=== PATIENT | female | born 1940 | race Caucasian/White ===

== ENCOUNTER → 2017-05-01 11:26 | Outpatient (CLI) | payer MEDICARE, SELFPAY ==
[2017-05-01 16:13] LABS: AST(SGOT) 23 U/L (15-37); Alanine Aminotransfer ALT/SGPT 34 U/L (13-56); Anion Gap 10 (5-15); BUN 13 mg/dL (7-18); BUN/Creat Ratio 17.6 RATIO (10-20); Calcium,Total 9.2 mg/dL (8.5-10.1); Chloride 107 mmol/L (98-107); Cholesterol 185 mg/dL (200); Creatinine, Serum 0.74 mg/dL (0.55-1.02); EST Glomerular Filtration Rate 81 mL/min (>60); Est Glom Filt Rate - Afr Amer 98 mL/min (>60); Glucose 93 mg/dL (74-106); High Density Lipoprotein 87 mg/dL; Potassium 4.2 mmol/L (3.5-5.1); Sodium Level 140 mmol/L (136-145); Thyroid Stim Hormone (TSH) 2.67 uIU/mL (0.358-3.74); Triglycerides 114 mg/dL; Very Low Density Lipoprotein 23 mg/dL (5-40)
== END ==
PROVIDERS: Family Provider Family Medicine; PCP Family Medicine; Visit Provider Family Medicine
DX: E78.5 Hyperlipidemia, unspecified (principal); Z01.419 Encounter for gynecological examination (general) (routine) without abnormal findings
CPT/HCPCS: 36415; 80048; 80061; 84443; 84450; 84460

== ENCOUNTER → 2018-03-02 10:37 | Outpatient (CLI) | payer MEDICARE, SELFPAY ==
[2018-03-02 09:11] VITALS: BMI 26.2
[2018-03-02 12:29] LABS: Absolute Lymphocyte Count 2.04 X10^3/ul (0.83-4.51); Absolute Neutrophil Count 3.2 X10^3/uL (2.0-7.7); Basophil# 0.02 X10^3/uL; Basophil% 0.3 % (0-1); Eosinophil# 0.16 X10^3/uL; Eosinophils% 2.7 % (0-5); Hematocrit 45.6 % (37-47); Hemoglobin 15.1 g/dl (12.0-15.0); Lymphocyte # 2.04 X10^3/ul (4.0); Lymphocyte % 35.1 % (19-41); Mean Corp Hgb Conc 33.1 g/gl (32-36); Mean Corpuscular Volume 87.7 fL (81-99); Mean Platelet Vol. 10.1 fl (6.2-12.0); Monocyte% 6.9 % (0-10); Platelet Count 242 K/mm3 (150-450); RBC Distribution Width CV 13.8 % (11.6-14.6); RBC Distribution Width SD 44.4 fl (35.1-43.9); White Blood Count 5.8 K/mm3 (4.4-11.0)
[2018-03-02 12:36] LABS: POSITIVE COUNT NO; POSITIVE DIFFERENTIAL NO; POSITIVE MORPHOLOGY NO
[2018-03-02 13:05] LABS: AST(SGOT) 21 U/L (15-37); Alanine Aminotransfer ALT/SGPT 36 U/L (13-56); Albumin, Serum 4.3 g/dL (3.2-5.0); Alkaline Phosphatase 86 U/L (45-117); Bilirubin, Direct 0.17 mg/dL (0.00-0.30); Cholesterol 171 mg/dL (200); Globulin 3.4 g/dL (2.2-4.2); High Density Lipoprotein 87 mg/dL; Protein, Total 7.7 g/dL (6.4-8.2); Triglycerides 100 mg/dL; Very Low Density Lipoprotein 20 mg/dL (5-40)
[2018-03-02 13:11] LABS: ALB/GLOB Ratio 1.2 RATIO (0.9-2.4); AST(SGOT) 23 U/L (15-37); Alanine Aminotransfer ALT/SGPT 36 U/L (13-56); Albumin, Serum 4.2 g/dL (3.2-5.0); Alkaline Phosphatase 86 U/L (45-117); Anion Gap 11 (5-15); BUN 12 mg/dL (7-18); BUN/Creat Ratio 14.3 RATIO (10-20); Calcium,Total 9.6 mg/dL (8.5-10.1); Chloride 103 mmol/L (98-107); Creatinine, Serum 0.84 mg/dL (0.55-1.02); EST Glomerular Filtration Rate 70 mL/min (>60); Est Glom Filt Rate - Afr Amer 84 mL/min (>60); Globulin 3.5 g/dL (2.2-4.2); Glucose 93 mg/dL (74-106); Potassium 4.1 mmol/L (3.5-5.1); Protein, Total 7.7 g/dL (6.4-8.2); Sodium Level 140 mmol/L (136-145); Thyroid Stim Hormone (TSH) 2.76 uIU/mL (0.358-3.74)
--- OUTSIDE RECORDS SUMMARY | 2018-04-18 11:11 | XMS RPT_ITS ---
:1940 Author Organization OHIP Care Team Providers Name Role Phone Lauro Joshi Attending Unavailable Jolliff, Emelia Referring Unavailable Lauro Joshi Attending Unavailable Lauro Joshi Referring Unavailable Jolliff, Emelia Primary Care Unavailable Lauro Joshi Attending Unavailable Lauro Joshi Referring Unavailable Jolliff, Emelia Primary Care Unavailable Lauro Joshi Attending Unavailable Lauro Joshi Referring Unavailable Jolliff, Emelia Primary Care Unavailable Lauro Joshi Attending Unavailable Jolliff, Emelia Referring Unavailable Lauro Joshi Attending Unavailable Lauro Joshi Referring Unavailable Jolliff, Emelia Primary Care Unavailable JolliffEmelia Attending Unavailable Jolliff, Emelia Primary Care Unavailable Lauro Joshi Attending Unavailable Lauro Joshi Referring Unavailable Lauro Joshi Attending Unavailable Lauro Joshi Referring Unavailable PROBLEMS PROBLEMS DATE TYPE CONDITION / CODE ATTENDING STATUS SOURCE 03/31/2018 Unknown E78.5 - Lauro Joshi Active [place] Hyperlipidemia, Community unspecified / Hospital E78.5(ICD-10) Repository 04/02/2018 Unknown R07.9 - Chest pain, Lauro Joshi Active [place] unspecified / Community R07.9(ICD-10) Hospital Repository 03/02/2018 Unknown R42 - Dizziness and Lauro Joshi Active [place] giddiness / Community R42(ICD-10) Hospital Repository 03/02/2018 Unknown R55 - Syncope and Lauro Joshi Active [place] collapse / Community R55(ICD-10) Hospital Repository 05/01/2017 Unknown 272.4 - Other and Emelia Trevino unspecified Community hyperlipidemia / Hospital 272.4(ICD-9) Repository 05/01/2017 Unknown Z01.419 - Encounter Emelia Trevino for gynecological [facility] examination Hospital (general) (routine) Repository without abnormal findings / Z01.419(ICD-10) 05/01/2017 Unknown V72.31 - Routine Emelia Trevino gynecological Community examination / Hospital V72.31(ICD-9) Repository PROCEDURES PROCEDURES No Procedure Records FoundRESULTS RESULTS OFFICE VISIT REPORT Observed: 03/30/2018 Status: F Source: [place] 1:54 PM REPOSITORY [facility] Services [facility] [place] [address] OFFICE VISIT Date of Service: 03/12/18 MR#: [id number] Acct: [id number] Patient: NEETA GARCIA Rep #: [id number] : 1940 Provider: Lauro Joshi MD Age/Sex: 77/F [place] [facility] [place]: Signed Intake Vital Signs03/12/18 Body Mass Index (BMI) 26.2 Intake Visit Reasons: NATHALIE - CATH TEACHING Chief Complaint: Pre syncope, chest pain, LBBB Allergies No Known Allergies Allergy (Unverified 03/01/18 17:17) Medications aspirin 81 mg tablet,delayed release 81 mg PO DAILY 03/01/18 [History Confirmed 03/30/18] simvastatin 20 mg tablet 20 mg PO QHS 03/01/18 [History Confirmed 03/30/18] clopidogrel 75 mg tablet 75 mg PO DAILY #30 tab 03/12/18 [Rx Confirmed 03/30/18] Assessment AND Plan Medications New: Nursing Note Patient had abnormal stress test today. Is here for cath teaching. Already had ekg, labs, CXR and OV is current. She is already on ASA 81 mg a day. She is to start Plavix 75 mg a day, RX will be sent to her pharmacy of choice. Heart cath is scheduled for March 31 @ 9:30 am, arrival time for pt. is 8am. 03/30/18 1354 <Electronically signed by Lauro Joshi MD> Date Lauro Joshi MD Cosigner Signature: Date (if applicable) CC: Nathalie Calderon STRESS TEST ECHO W/ Observed: 03/12/2018 Status: F Source: [place] CONTRAST 2:15 PM REPOSITORY [facility] Cardiovascular Services [address] [place] [address] Stress Test Echo W/Contrast MR#: [id number] Acct: [id number] Name: NEETA GARCIA Rep #: [id number] : 1940 77 From: Lauro Joshi MD Primary Care: Emelia Trevino MD Status: REG I Ordering Dr: Lauro Joshi MD Sex: F C Reason For Study: CHEST PAIN Stress Results Protocol: Aj Protocol Maximum Predicted HR: 142 bpm Target HR: 121 bpm % Maximum Predicted HR: 92 % DurationHeart Rate Stage (mm:ss) (bpm) BP Comment BASELINE 77 140/702CC DEFINITY STAGE 1 3:00 112 146/72 STAGE 2 1:30 131 / 2CC DEFINITY, INCREASED SOB RECOVERY 108 138/78 Stress Duration: 4:30 mm:ss Maximum Stress HR: 131 bpm Baseline Echocardiogram Findings The estimated ejection fraction is 65 %. Stress Echo Wall motion Data Resting WM Intermediate WM Stress WM Resting Wall Motion Wall Motion Stress No regional wall motion Posterior-Basal: Mildly abnormalities noted. hypokinetic. Infero-Basal: Mildly hypokinetic. Mid-Inferior: Mildly hypokinetic. EKG Data NSR with LBBB. The patient exercised according to the regular Aj protocol for a total duration of 4:30. The maximum heart rate attained was 137 beats per minute. This was 96% of maximum predicted heart rate. The patient exercised into stage 2 of the Aj protocol. During stress, there were no ST or T wave changes noted to suggest ischemia. No clinical angina was noted. Interpretation Summary The study was technically difficult. Contrast injection was performed. The estimated ejection fraction is 65 %. Posterior-Basal: Mildly hypokinetic Infero-Basal: Mildly hypokinetic Mid-Inferior: Mildly hypokinetic Abnormal, adequate, treadmill echocardiogram. Positive for ischemia by echocardiographic criteria. No anginal symptoms noted. Rare PVCs noted. Below average exercise capacity for age. Patient appeared to have mild inferior posterior hypokinesis seen in 2 views, parasternal long and apical 2 view. Test terminated due to dyspnea. Final LVEF is 55%. No complications. Pt referred to Dr Joshi's office for cath. Ordering Physician: Adi Referring Physician: Lauro Joshi Performed By: Leeroy Carlos RCS 03/12/18 1415 Date Lauro Joshi MD CC: Emelia Trevino MD; Lauro Joshi MD Date Dictated: 03/12/18 1039 Date Transcribed: 03/12/18 1418 Bridge Rigger: Signed CHEST PA AND LATERAL Observed: 03/12/2018 Status: F Source: [place] 11:36 AM [facility] REPOSITORY [facility] Imaging Services [address] [place] [address] Chest PA and Lateral MR#: [id number] Acct: [id number] Name: NEETA GARCIA Rep #: [id number] : 1940 F 77 From: Alex Dawson MD PCP: Emelia Trevino MD Status: REG CLI Study: Chest PA and Lateral Date of Exam: 03/12/18 Exam# [id number] Ordering Dr: Lauro Joshi MD STUDY: X-RAY CHEST REASON FOR EXAM: Female, 77 years old. Chest pain. TECHNIQUE: PA and lateral views of the chest. COMPARISON: None. FINDINGS: Hyperinflation. Scattered calcified granulomas. There is no demonstrated pleural abnormality. Normal size heart. Normal mediastinum and lula. Normal visualized pulmonary arteries. There is atherosclerotic calcification of the aortic arch with tortuosity. There is demineralization of the osseous structures. Mild levoscoliosis. Normal visualized ribs, clavicles, and shoulders. There is no demonstrated abnormality of the visualized soft tissue structures of the upper abdomen. RAD/Chest PA and Lateral IMPRESSION: Hyperinflation. Electronically Signed: Alex Dawson MD at 12:31 EST Tel [phone], Service support , CC: Emelia Trevino MD; Lauro Joshi MD Bridge Rigger: Signed ECHO, COMPLETE W/ Observed: 03/11/2018 Status: F Source: [place] CONTRAST 9:41 AM [facility] REPOSITORY [facility] Cardiovascular Services [address] [place] [address] Echo Complete W/ Contrast 03/11/18 0750 MR#: [id number] Acct: [id number] Name: NEETA GARCIA Rep #: [id number] : 1940 77 From: Lauro Joshi MD Attending Dr: Lauro Joshi MD Status: REG CLI Ordering Dr: Lauro Joshi MD Date: 03/11/18 Location: [facility] Sex: F C Admitted: Procedure This was a 2D Doppler, Color Flow transthoracic echocardiogram. The study was technically difficult. Contrast injection was performed. Exam performed in department. Left Ventricle Mild eccentric left ventricular hypertrophy. The estimated ejection fraction is 60 %. Stage 1 diastolic dysfunction. No regional wall motion abnormalities noted. Right Ventricle Normal size and thickness. Normal systolic function. Atria Normal left atrium. Normal right atrium. Normal atrial septum. Bubble contrast study negative for right to left interatrial shunt. Mitral Valve The mitral valve is structurally normal. No prolapse or stenosis seen. Trivial mitral valve insufficiency. Tricuspid Valve Normal tricuspid valve. Trivial tricuspid valve insufficiency. Right ventricular systolic pressure estimated to be 25 mmHg. Aortic Valve Trisinus/trileaflet aortic valve. Mild diffuse aortic valve thickening. Pulmonic Valve Normal pulmonic valve. Great Vessels Normal aortic root. Normal arch. Normal inferior vena cava. Inferior vena cava collapse with sniff. Pericardium/Pleural No pericardial effusion. Medication 22 gauge I.V. with prn adaptor inserted into right arm. Diluted definity 1.5ml given slow IV push to enhance endocardial definition. MMode/2D Measurements AND Calculations LVIDd: 4.9 cm IVSd: 1.2 cm Ao root diam: 3.1 cm LVIDs: 3.1 cm LVPWd: 1.1 cm RVDd: 3.2 cm FS: 36.6 % LAV(MOD-bp): 44.5 ml LA A4 area: 16.8 cm2 LA dimension(2D): 3.3 cm LAV(MOD-bp) Indexed: 23.7 ml/m2 LAV(MOD-sp2): 39.4 ml LAV(MOD-sp4): 49.9 ml RA A4 area: 15.3 cm2 Time Measurements MV dec time: 0.16 sec Doppler Measurements AND Calculations MV E max al: 78.0 cm/sec Lat Peak E' Al: 6.6 cm/sec Med Peak E' Al: 4.7 cm/sec MV A max al: 114.7 cm/sec E/E' lat: 11.8 E/E' med: 16.5 MV E/A: 0.68 Ao V2 max: 124.5 cm/sec LV V1 max: 80.0 cm/sec PA V2 max: 108.9 cm/sec Ao max P.2 mmHg LV V1 max P.6 mmHg TR max al: 221.2 cm/sec TR max P.6 mmHg Interpretation Summary The estimated ejection fraction is 60 %. Stage 1 diastolic dysfunction. Trivial mitral valve insufficiency. Trivial tricuspid valve insufficiency. Right ventricular systolic pressure estimated to be 25 mmHg. Bubble contrast study negative for right to left interatrial shunt. Compared to echo report dated 08/30/2008, no appreciable changes noted. The study was technically difficult. Contrast injection was performed. Ordering Physician: Lauro Joshi Referring Physician: Lauro Joshi 03/11/18940 Date Lauro Joshi MD CC: Emelia Trevino MD; Lauro Joshi MD Date Dictated: 03/11/18749 Date Transcribed: 03/11/18940 Bridge Rigger: Signed LIVER PROFILE Collected: 03/02/2018 Status: F Source: [place] 10:50 AM REPOSITORY TYPE CODE TESTS RESULT OUT OF RANGE REFERENCE UNITS LAB L501.1500 6.4-8.2 g/dL Normal T PROT 7.7 LAB L501.1800 3.2-5.0 g/dL Normal ALB 4.3 LAB L501.1950 2.2-4.2 g/dL Normal GLOB 3.4 LAB L501.4100 15-37 U/L Normal AST 21 LAB L501.4305 45-117 U/L Normal ALK P 86 LAB L501.4405 13-56 U/L Normal ALT 36 LAB L501.4600 0.20-1.00 mg/dL Normal T BILI 0.60 LAB L501.4700 0.00-0.30 mg/dL Normal D BILI 0.17 Performed By: #### L500.3400, L500.4100 #### [facility] [address] [place], [address] LIPID PROFILE Collected: 03/02/2018 Status: F Source: [place] 10:50 AM REPOSITORY TYPE CODE TESTS RESULT OUT OF RANGE REFERENCE UNITS LAB L501.4900 200 mg/dL Normal CHOL 171 Result Comment: <200 mg/dL Desirable 200-240 mg/dL Borderline >240 mg/dL High Risk LAB L501.5000 mg/dL Normal TRIG 100 Result Comment: The drugs N-Acetylcysteine and Metamizole may falsely depress this assay. Serum Triglycerides Reference Interval Normal <150 mg/dL Borderline high 150 - 199 mg/dL High 200 - 499 mg/dL Very High > or = 500 mg/dL LAB L501.6400 mg/dL Normal HDL 87 Result Comment: The drugs N-Acetylcysteine and Metamizole may falsely depress this assay. Reference Range HDL <40 mg/dL Low HDL Cholesterol HDL >or= 60 mg/dL High HDL Cholesterol LAB L501.6500 0-130 mg/dL Normal LDL 64 LAB L501.6600 5-40 mg/dL Normal VLDL 20 Performed By: #### L500.3400, L500.4100 #### [facility] [address] [place], [address] CBC W/DIFF, AUTOMATED Collected: 03/02/2018 Status: F Source: [place] 10:49 AM REPOSITORY TYPE CODE TESTS RESULT OUT OF RANGE REFERENCE UNITS LAB L100.1000 4.4-11.0 K/mm3 Normal WBC 5.8 LAB L100.1200 4.2-5.4 M/mm3 Normal RBC 5.20 LAB L100.1300 12.0-15.0 g/dl High HGB 15.1 LAB L100.1400 37-47 % Normal HCT 45.6 LAB L100.1500 81-99 fL Normal MCV 87.7 LAB L100.1600 27.0-32.0 pg Normal MCH 29.0 LAB L100.1700 32-36 g/gl Normal MCHC 33.1 LAB L100.1810 11.6-14.6 % Normal RDW CV 13.8 LAB L100.1820 35.1-43.9 fl High RDW SD 44.4 LAB L100.1900 150-450 K/mm3 Normal PLT 242 LAB L100.2000 6.2-12.0 fl Normal MPV 10.1 LAB L100.2100 47-70 % Normal NEUT% 55.0 LAB L100.2200 19-41 % Normal LY% 35.1 LAB L100.2300 0-10 % Normal MONO% 6.9 LAB L100.2400 0-5 % Normal EO% 2.7 LAB L100.2500 0-1 % Normal BASO% 0.3 LAB L100.2550 0.0-0.9 % Normal IM GRAN % 0.000 Result Comment: IG% - Immature Granulocytes (promyelocytes, myelocytes and metamyelocytes) > 1% indicates that a LEFT SHIFT is Present. LAB L100.2620 2.0-7.7 X10 3/uL Normal Absolute Neut 3.2 LAB L100.2720 0.83-4.51 X10 3/ul Normal Absolute Lymph 2.04 Performed By: #### L100.0100, L500.4050, L501.9520 #### [facility] [address] [place], [address] COMPREHENSIVE METABOLIC Collected: 03/02/2018 Status: F Source: [facility] 10:49 AM REPOSITORY TYPE CODE TESTS RESULT OUT OF RANGE REFERENCE UNITS LAB L501.0100 74-106 mg/dL Normal GLU 93 Result Comment: Please note revised GLUCOSE reference range effective 2017. LAB L501.1000 7-18 mg/dL Normal BUN 12 LAB L501.1100 0.55-1.02 mg/dL Normal CREAT,SERUM 0.84 Result Comment: The validity of the calculated GFR AND GFRAA in patients over 70 years has not been determined. Clinical correlation is essential. LAB L501.1110 >60 mL/min Normal EST GFR 70 Result Comment: Non- GFR Calc LAB L501.1115 >60 mL/min Normal EST GFR - AA 84 Result Comment: GFR Calc LAB L501.1300 10-20 RATIO Normal BUN/CRE 14.3 LAB L501.1500 6.4-8.2 g/dL T Normal PROT 7.7 LAB L501.1800 3.2-5.0 g/dL Normal ALB 4.2 LAB L501.1950 2.2-4.2 g/dL Normal GLOB 3.5 LAB L501.2000 0.9-2.4 RATIO Normal A/G 1.2 LAB L501.2200 8.5-10.1 mg/dL CA Normal 9.6 LAB L501.4100 15-37 U/L Normal AST 23 LAB L501.4305 45-117 U/L Normal ALK P 86 LAB L501.4405 13-56 U/L Normal ALT 36 LAB L501.4600 0.20-1.00 mg/dL T Normal BILI 0.60 LAB L501.5300 136-145 mmol/L NA Normal 140 LAB L501.5600 3.5-5.1 mmol/L K Normal 4.1 LAB L501.5900 98-107 mmol/L CL Normal 103 LAB L501.6100 21.0-32.0 mmol/L Normal CO2 26.0 LAB L501.6200 5-15 Normal GAP 11 Performed By: #### L100.0100, L500.4050, L501.9520 #### [facility] [address] [place], [address] THYROID STIM HORMONE Collected: 03/02/2018 Status: F Source: [place] ([facility]) 10:49 AM REPOSITORY TYPE CODE TESTS RESULT OUT OF RANGE REFERENCE UNITS LAB L501.9520 0.358-3.74 uIU/mL Normal TSH 2.76 Performed By: #### L100.0100, L500.4050, L501.9520 #### [facility] [address] [place], [place], [address] CARDIOLOGY VISIT Observed: 03/02/2018 Status: F Source: [place] REPORT 9:43 AM REPOSITORY [facility] [address] [place] [address] OFFICE VISIT Date of Service: 03/02/18 MR#: [id number] Acct: [id number] Name: NEETA GARCIA Rep #: [id number] : 1940 Provider: Lauro Joshi MD Age/Sex: 77/F [place] [facility] [place] Status: Signed HPI [facility] Chief Complaint: Pre syncope, chest pain, LBBB Details: NEETA GARCIA, is a 77 F who presents to the office today for evaluation of vertigo type dizziness, as well as left-sided chest pain. Patient is a nondiabetic, lifelong non-smoker, nonhypertensive, with hypercholesterolemia and no known coronary artery disease. The patient had a stress test many years ago, but has never had a catheterization or been told she had a heart attack. She has never been told she had an abnormal EKG. She denies having previous CVA. She has no positive family history for premature coronary artery disease although she does have family members who have of sudden cardiac in their mid 60s. Patient reports that she has had occasional episodes of left- sided chest pain which she describes as a constant dullness lasting about 10 minutes occasionally radiating down into her left arm with no associated shortness of breath dyspnea or trouble breathing. It appears to occur at rest, but has occasionally occurred with ambulation. He goes away on its own. This is been going on for approximately 3 weeks time and sought medical attention with her PCP and was referred to our office. In addition to this, and separately, the patient has had episodes of what appear to be vertigo, where she loses her balance and has to walk towards her left to regain it. Each of the times this happens, she has to ambulate towards her left to regain her footing. She has had no loss of consciousness, no dizziness, no lightheadedness, no presyncope. She has had no syncopal events as well. In our office today her blood pressure is 124/80, pulse 76 and regular. Physical exam demonstrates clear lungs bilaterally, regular rate and rhythm, normal S1/S2, no S3 or S4. No murmurs are detected. She has no edema. Her lipids as of 05/01/17 show an HDL of 87 and an LDL of 75. EKG dated 03/02/18 shows normal sinus rhythm, first- degree AV block, left atrial enlargement, and left bundle branch block. No old EKGs noted. Intake Vital Signs03/02/18 Height 5 ft 7 in 03/02/18 Weight: 167 lb 03/02/18 Body Mass Index (BMI) 26.2 03/02/18 Blood Pressure 124/80 H Intake Visit Reasons: NEAR SYNCOPE (JOLLIFF) Allergies No Known Allergies Allergy (Unverified 03/01/18 17:17) Medications aspirin 81 mg tablet,delayed release 81 mg PO DAILY 03/01/18 [History Confirmed 03/01/18] simvastatin 20 mg tablet 20 mg PO QHS 03/01/18 [History Confirmed 03/01/18] [facility] Medical History Hyperlipidemia (Chronic) Chest pain (Acute) Near syncope (Acute) Dizziness (Acute) Family History Sister Kidney disease Father , Age 70, leukemia Leukemia Mother , Age 86, dementia Diabetes Hypertension Brother , age 64 sudden cardiac CAD (coronary artery disease) Sudden cardiac Brother Parkinson's disease Brother Parkinson's disease Sister Blood clotting factor deficiency disorder Protein S Uncle , Sudden cardiac Sudden cardiac Social History Smoking Status: Never smoker ROS Const Const: Positive for other (Near syncopal episodes for past 6 months, several episodes. Witnessed.); negative for fatigue, weakness, body ache, fever(s), headache(s), chills, frequent falls, night sweats, daytime sleepiness, difficulty sleeping, excessive sweating, weight gain, weight loss, increased appetite, poor appetite or anorexia Eyes Eyes: Negative for blind spots, loss of peripheral vision, transient loss of vision, blurry vision, change in vision, double vision, floaters, tunnel vision or other ENT ENT: Negative for headache(s), dizziness, hearing loss, tinnitus, Nosebleed/epistaxis, balance problems, post nasal drip, lip swelling, tongue swelling, bleeding gums, hoarseness, neck pain, dry mouth or other Cardio Chest Pain: Yes (Left chest radiating down left arm, 2 episodes: 1 at night in bed.) Character: other (aching) Location: left chest Duration: minutes (about 10 minutes) Palpitations: No Edema: None Muscle aches with walking: None Resp Respiratory: Negative for SOB with activity, SOB at rest, SOB orthopnea\SOB lying down, Cough, Coughing up blood/hemoptysis, chest congestion, pain on inspiration, snoring, stridor, wheezing, crackles, paroxysmal nocturnal dyspnea or other GI GI: Negative nausea, vomiting, heartburn, constipation, belching, bloating, cramping, vomiting blood/hematemesis, bright, red blood in stools, black,tarry stools, loose stools, Difficulty Swallowing or other : Negative for hematuria, frequent nighttime urination/ nocturia, erectile dysfunction or abnormal vaginal bleeding Musc Musc: Negative for balance problems, muscle aches/ myalgia, muscle weakness or joint pain Skin Skin: Negative redness, non-healing lesions, rash, unusual bruising, skin ulcer, wounds, jaundice or other Neuro Neuro: Negative for weakness, headache(s), frequent falls, blurry vision, double vision, dizziness, lightheadedness, near syncope, syncope, orthostatic symptoms, confusion, memory loss, restless legs, vertigo, seizures, lack of coordination or other Dragan Hematologic/Lymphatic: Negative for easy bleeding, easy bruising, enlarged lymph nodes or other Endo Endo: Negative for fatigue, excessive sweating, cold intolerance, heat intolerance, flushing, increased thirst/drinking, increased hunger, hair loss, hair growth or other Psych Psych: Negative for anxiety, depression, thoughts of harming anyone, thoughts of harming yourself, visual hallucinations, panic attacks or audible hallucinations Allergy Allergy/Immunology: Negative for lip swelling, Negative for tongue swelling, Negative for rash, Negative for throat swelling, Negative for hives Cardiology Exam Const Appearance: cooperative, healthy appearing and no acute distress Nutritional Appearance: well nourished Orientation: alert, oriented x3 and oriented to person Head Head: normal to inspection, atraumatic and normocephalic Nose: external nose normal Face and Sinus: face symmetric Mouth: oral mucosae normal Eyes General: appearance normal, both eyes and all related structures Eyelids: eyelids normal Conjunctivae: conjunctivae normal Pupils: PERRL and normal by confrontation EOM: EOM intact bilaterally Neck Neck: normal visual inspection and full ROM Carotids: normal carotid upstroke Chest Chest inspection: normal inspection of the chest Auscultation: Bilateral: Clear to Auscultation Cardio Palpation: normal PMI Rate: regular rate Rhythm: regular rhythm Heart sounds: S1 normal and S2 normal GI GI: normal to inspection, no hepatosplenomegaly and bowel sounds present Neuro General: alert, oriented x3, awake, CN's II-XI intact bilaterally and moves all extremities Skin Skin: no rashes or lesions noted Extremities Pulses: Normal: Right Femoral Pulse, Left Femoral Pulse, Right Dorsalis Pedis Pulse, Left Dorsalis Pedis Pulse, Right Posterior Tibial Pulse, Left Posterior Tibial Pulse, Right Radial Pulse, Left Radial Pulse Lower Extremity Edema: None: Bilateral Psych Psychological: normal affect Assessment AND Plan 1. Chest pain R07.9 Plan 1. Chest pain: I am concerned given the patient's age and family history of coronary disease that she may have coronary artery disease. In addition she has an abnormal EKG with a left bundle branch block for an unknown duration of time. I recommended the patient undergo a 2D echo with Doppler to determine if she has had previous undiagnosed myocardial infarction, as well as to assess her pulmonary pressures. If there are no sniffing abnormalities, I recommend the patient undergo a modified Aj protocol treadmill echocardiogram to determine if she has any ischemic territories. Patient had difficulty keeping up with a treadmill in the past mostly from a coordination standpoint, so we will attempt a modified Aj protocol however this is unsafe, we will discontinue this and switch her to a dobutamine echocardiogram. Will hold off on beta-dany therapy as her blood pressure is normotensive. Orders Orders: 2. Hyperlipidemia E78.5 Plan 2. Hyperlipidemia: Her LDL and HDL cholesterol are fairly well-controlled for primary prophylaxis. Repeat lipids are pending. Continue Zocor. Orders Orders: 3. Dizziness R42 Plan 3. Dizziness: The patient's symptoms appear to be more vertigo than presyncope. She has had no syncopal or presyncopal episodes, and it appears that she has ambulate towards the left in order to regain her footing. This appears to be vertigo in nature, but nonetheless she has a left bundle branch block so I am concerned about possible arrhythmias contributing to her cerebral findings. Have recommended that she be referred to a neurologist after her cardiac workup is been complete. Continue baby aspirin. 4. Return office in 6-month.S This note was generated using a voice recognition system and there may be incorrect words, spelling or punctuation that were not noted when reviewing the office note prior to saving. Orders Orders: Plan Detail Other Orders Orders: Follow Up +6M (Adi) Coding Level of Care Code Off vis,new,level 4 Diagnoses Chest pain R07.9 Hyperlipidemia E78.5 Dizziness R42 Coding Level of Care Code Off vis,new,level 4 Diagnoses Chest pain R07.9 Hyperlipidemia E78.5 Dizziness R42 03/02/18 0943 <Electronically signed by Lauro Joshi MD> Date Lauro Joshi MD Cosigner Signature: Date (if applicable) CC: Emelia Trevino MD 12 LEAD EKG PERFORMED Observed: 03/02/2018 Status: F Source: [place] [facility] 8:53 AM REPOSITORY [facility] [address] [place] [address] 12 Lead EKG performed by [facility] 03/02/18 0853 MR#: [id number] Acct: [id number] Name: NEETA GARCIA Rep #: [id number] : 1940 77 From: Lauro Joshi MD Attending Dr: Lauro Joshi MD Status: DEP AMB Ordering Dr: Lauro Joshi MD Date: 03/02/18 Location: [facility] Sex: F C Admitted: [facility]/12 Lead EKG performed by [facility] ECG Report Interpretation Sinus Rhythm -First degree A-V block Feliberto = 226-Left bundle branch block. ABNORMAL Electronically signed on 03/05/2018 at 15:08 by Lauro Joshi Software Version 8610 03/05/18 151 Date Lauro Joshi MD CC: Emelia Trevino MD Date Dictated: 03/02/18852 Date Transcribed: 03/02/18852 Bridge Rigger: Signed BASIC METABOLIC Collected: 05/01/2017 Status: F Source: [place] PROFILE (BMP) 11:30 AM REPOSITORY Order Comment: Order Date: 05/01/17 Order Info: 0667-1 - BMP Order Info: 83299-5 - LIPID Order Info: 1920-8 - AST Order Info: 1742-6 - ALT Order Info: 3016-3 - TSH TYPE CODE TESTS RESULT OUT OF RANGE REFERENCE UNITS LAB L501.0100 74-106 mg/dL Normal GLU 93 Result Comment: Please note revised GLUCOSE reference range effective 2017. LAB L501.1000 7-18 mg/dL Normal BUN 13 LAB L501.1100 0.55-1.02 mg/dL Normal CREAT,SERUM 0.74 Result Comment: The validity of the calculated GFR AND GFRAA in patients over 70 years has not been determined. Clinical correlation is essential. LAB L501.1110 >60 mL/min Normal EST GFR 81 Result Comment: Non- GFR Calc LAB L501.1115 >60 mL/min Normal EST GFR - AA 98 Result Comment: GFR Calc LAB L501.1300 10-20 RATIO Normal BUN/CRE 17.6 LAB L501.2200 8.5-10.1 mg/dL CA Normal 9.2 LAB L501.5300 136-145 mmol/L NA Normal 140 LAB L501.5600 3.5-5.1 mmol/L K Normal 4.2 LAB L501.5900 98-107 mmol/L CL Normal 107 LAB L501.6100 21.0-32.0 mmol/L Normal CO2 23.0 LAB L501.6200 5-15 Normal GAP 10 Performed By: #### L500.2500, L500.4100, L501.4100, L501.4405, L501.9520 #### [facility] [address] [place], [address] LIPID PROFILE Collected: 05/01/2017 Status: F Source: [place] 11:30 AM REPOSITORY Order Comment: Order Date: 05/01/17 Order Info: 0667-1 - BMP Order Info: 52853-6 - LIPID Order Info: 1920-8 - AST Order Info: 1742-6 - ALT Order Info: 3016-3 - TSH TYPE CODE TESTS RESULT OUT OF RANGE REFERENCE UNITS LAB L501.4900 200 mg/dL Normal CHOL 185 Result Comment: <200 mg/dL Desirable 200-240 mg/dL Borderline >240 mg/dL High Risk LAB L501.5000 mg/dL Normal TRIG 114 Result Comment: The drugs N-Acetylcysteine and Metamizole may falsely depress this assay. Serum Triglycerides Reference Interval Normal <150 mg/dL Borderline high 150 - 199 mg/dL High 200 - 499 mg/dL Very High > or = 500 mg/dL LAB L501.6400 mg/dL Normal HDL 87 Result Comment: The drugs N-Acetylcysteine and Metamizole may falsely depress this assay. Reference Range HDL <40 mg/dL Low HDL Cholesterol HDL >or= 60 mg/dL High HDL Cholesterol LAB L501.6500 0-130 mg/dL Normal LDL 75 LAB L501.6600 5-40 mg/dL Normal VLDL 23 Performed By: #### L500.2500, L500.4100, L501.4100, L501.4405, L501.9520 #### [facility] [address] [place], [place], [address] AST(SGOT) Collected: 05/01/2017 Status: F Source: [place] 11:30 AM REPOSITORY Order Comment: Order Date: 05/01/17 Order Info: 666-03 - BMP Order Info: 88326-8 - LIPID Order Info: 1919-10 - AST Order Info: 1741-08 - ALT Order Info: 3016-3 - TSH TYPE CODE TESTS RESULT OUT OF RANGE REFERENCE UNITS LAB L501.4100 15-37 U/L Normal AST 23 Performed By: #### L500.2500, L500.4100, L501.4100, L501.4405, L501.9520 #### [facility] [address] [place], [place], [address] ALANINE AMINOTRANSFERAS Collected: 05/01/2017 Status: F Source: [place] (SGPT) 11:30 AM REPOSITORY Order Comment: Order Date: 05/01/17 Order Info: 666-03 - BMP Order Info: - LIPID Order Info: 1919-10 - AST Order Info: 1741-08 - ALT Order Info: 6-3 - TSH TYPE CODE TESTS RESULT OUT OF RANGE REFERENCE UNITS LAB L501.4405 13-56 U/L Normal ALT 34 Result Comment: Please note revised ALT reference range effective 2017. Performed By: #### L500.2500, L500.4100, L501.4100, L501.4405, L501.9520 #### [facility] [address] [place], [address] THYROID STIM HORMONE Collected: 05/01/2017 Status: F Source: [place] (TSH[facility] Order Comment: Order Date: 05/01/17 Order Info: 0667-1 - BMP Order Info: 08592-7 - LIPID Order Info: 1920-8 - AST Order Info: 1742-6 - ALT Order Info: 3016-3 - TSH TYPE CODE TESTS RESULT OUT OF RANGE REFERENCE UNITS LAB L501.9520 0.358-3.74 uIU/mL Normal TSH 2.67 Performed By: #### L500.2500, L500.4100, L501.4100, L501.4405, L501.9520 #### [facility] [address] [place], [address] ALLERGIES ALLERGIES DATE TYPE / CODE NAME / CODE REACTION SEVERITY SOURCE 03/01/[address] [facility] Allergy/4160 Allergies/F00 Hospital 46083(SNOMED 5174921(RXNOR Repository CT) M) ENCOUNTERS ENCOUNTERS ADMIT/DISCHARGE ACCOUNT ADMITTING ENCOUNTER LOCATION SOURCE NUMBER CLASS 03/31/2018/ [id number] Ambulatory [place] 9 3 [facility] ing:[facility] Repository 03/12/2018/ [id number] Ambulatory BMSBuilding:B [place] 8 7 [facility] Repository 03/12/2018/ [id number] Ambulatory BMSBuilding:W [place] 8 8 [facility] Repository 03/12/2018 [id number] Ambulatory [place] 0 [facility] ing:[facility] Repository 03/11/2018 [id number] Amb[place] 8 [facility] ing:[facility] Repository 03/11/2018 [id number] Ambulatory BMSBuilding:W [place] 8 [facility] Repository 03/02/2018 [id number] Ambulatory [place] 2 [facility] ing:[facility] Repository 03/02/2018/ [id number] Ambulatory BMSBuilding:B [place] 8 4 [facility] Repository 05/01/2017 [id number] Ambulatory [place] 7 [facility] ing:MFPLAB Repository PAYERS PAYERS ENCOUNTER GUARANTOR PAYER SUBSCRIBER SOURCE 03/31/2018 HERB Mcdermott Primary Insurance:[facility] AGNESS L [place] [id number] MCR SOLUTIONSPolicy BUTTERBAUGHDOB: Community [place] Number: [id number], [place] [id number] Repository 86339Ztt: ([phone]) Date:2855-81-06YO [phone] () [id number] [place] [phone]: 03/31/2018 Secondary NOT GIVENUNK [place] Insurance:SELF PAY [facility]: Effective Repository Date:2018-03-12 03/12/2018 HERB W Primary Insurance:[facility] AGNESS L [place] [id number] MCR SOLUTIONSPolicy BUTTERBAUGHDOB: Community [place] Number: [id number], [place] [id number] Repository [address]Guc: [phone]) Date:8120-44-40ET [phone] () [address] [place] [phone]: 03/12/2018 Secondary NOT GIVENUNK [place] Insurance:SELF PAY [place] Number: Effective Repository Date:2018-03-12 03/12/2018 HERB W Primary Insurance:[facility] NANCIESS Prasanth [place] [id number] MCR SOLUTIONSPolicy BUTTERBAUGHDOB: Community DIANE Number: [id number], [place] [id number] Repository [address]45[address]Hgn: ([phone]) Date:9997-11-06XY [phone] () [address] [place] [phone]: 03/12/2018 Secondary NOT GIVENUNK [place] Insurance:SELF PAY [place] Number: Effective Repository Date:2018-03-12 03/12/2018 HERB W Primary Insurance:C AGNESS L [place] [id number] MCR SOLUTIONSPolicy BUTTERBAUGHDOB: Community DIANE Number: [id number], [place] [id number] Repository 289[address]Tpj: ([phone]) Date:6480-22-24KA [phone] () [address] [place] [address]QA: 03/12/2018 Secondary NOT GIVENUNK [place] Insurance:SELF PAY [facility]: Effective Repository Date:2018-03-02 03/11/2018 HERB Mcderm[place] Primary Insurance:[facility] AGNESS L [place] [id number] MCR SOLUTIONSPolicy BUTTERBAUGHDOB: Community DIANE Number: [id number], [place] [id number] Repository 85621Xme: ([phone]) Date:3521-85-96ZK [phone] () [address] [place] [address]TT: 03/11/2018 Secondary NOT GIVENUNK [place] Insurance:SELF PAY [facility] Number: Effective Repository Date:2018-03-02 03/11/2018 HERB Mcdermott Primary Insurance:[facility] NANCIESS L [place] [id number] [facility] SOLUTIONSPolicy BUTTERBAUGHDOB: Community DIANE Number: [id number], [place] [id number] Repository 25755Lyw: ([phone]) Date:3559-56-91FC [phone] () [address] [place] [address]VN: 03/11/2018 Secondary NOT GIVENUNK [place] Insurance:SELF PAY [facility] Number: Effective Repository Date:2018-03-11 03/02/2018 HERB Mcdermott Primary Insurance:[facility] AGNESS L [place] [id number] [facility] SOLUTIONSPolicy BUTTERBAUGHDOB: Community DIANE Number: [id number], [place] [id number] Repository 948[address]Ljt: ([phone]) Date:9391-60-06PI [phone] () [address] [place] [phone]: 03/02/2018 Secondary NOT GIVENUNK [place] Insurance:SELF PAY [facility] Number: Effective Repository Date:2018-03-02 03/02/2018 HERB [place] Primary Insurance:[facility] NEETA [place] [id number] [facility] Ludy GARCIADOB: [facility] DIANE Number: [id number], [place] [id number] Repository 99643Cbc: ([phone]) Date:2900-88-76JJ [phone] () [id number] [place] [phone]: 03/02/2018 Secondary NOT GIVENUNK [place] Insurance:SELF PAY [facility] Number: Effective Repository Date:2018-03-02 05/01/2017 Herb W Primary Insurance:[facility] NEETA [id number] [facility] VERNADhavallorena LONGMAINORB: [facility] Number: [id number] City, [place] [id number] Repository 80852Vam: (330) Date:4836-08-60MD [phone] () [id number] [place] [phone]: 05/01/2017 Secondary NOT GIVENUNK [place] Insurance:SELF PAY [place] Number: Effective Repository Date:2017-05-01
== END ==
PROVIDERS: Family Provider Family Medicine; PCP Family Medicine; Referring Provider Internal Medicine Cardiovascular Disease; Visit Provider Internal Medicine Cardiovascular Disease
DX: E78.5 Hyperlipidemia, unspecified (principal); R55 Syncope and collapse; R07.9 Chest pain, unspecified
CPT/HCPCS: 36415; 80053; 80061; 80076; 84443; 85025

== ENCOUNTER → 2018-03-11 07:42 | Outpatient (CLI) | payer MEDICARE, SELFPAY ==
[2018-03-02 09:11] VITALS: BMI 26.2
--- NOTE | 2018-03-11 07:44 | ECHOCS_ITS ---
Procedure This was a 2D Doppler, Color Flow transthoracic echocardiogram. The study was technically difficult. Contrast injection was performed. Exam performed in department. Left Ventricle Mild eccentric left ventricular hypertrophy. The estimated ejection fraction is 60 %. Stage 1 diastolic dysfunction. No regional wall motion abnormalities noted. Right Ventricle Normal size and thickness. Normal systolic function. Atria Normal left atrium. Normal right atrium. Normal atrial septum. Bubble contrast study negative for right to left interatrial shunt. Mitral Valve The mitral valve is structurally normal. No prolapse or stenosis seen. Trivial mitral valve insufficiency. Tricuspid Valve Normal tricuspid valve. Trivial tricuspid valve insufficiency. Right ventricular systolic pressure estimated to be 25 mmHg. Aortic Valve Trisinus/trileaflet aortic valve. Mild diffuse aortic valve thickening. Pulmonic Valve Normal pulmonic valve. Great Vessels Normal aortic root. Normal arch. Normal inferior vena cava. Inferior vena cava collapse with sniff. Pericardium/Pleural No pericardial effusion. Medication 22 gauge I.V. with prn adaptor inserted into right arm. Diluted definity 1.5ml given slow IV push to enhance endocardial definition. MMode/2D Measurements & Calculations LVIDd: 4.9 cm IVSd: 1.2 cm Ao root diam: 3.1 cm LVIDs: 3.1 cm LVPWd: 1.1 cm RVDd: 3.2 cm FS: 36.6 % LAV(MOD-bp): 44.5 ml LA A4 area: 16.8 cm2 LA dimension(2D): 3.3 cm LAV(MOD-bp) Indexed: 23.7 ml/m2 LAV(MOD-sp2): 39.4 ml LAV(MOD-sp4): 49.9 ml RA A4 area: 15.3 cm2 Time Measurements MV dec time: 0.16 sec Doppler Measurements & Calculations MV E max al: 78.0 cm/sec Lat Peak E' Al: 6.6 cm/sec Med Peak E' Al: 4.7 cm/sec MV A max al: 114.7 cm/sec E/E' lat: 11.8 E/E' med: 16.5 MV E/A: 0.68 Ao V2 max: 124.5 cm/sec LV V1 max: 80.0 cm/sec PA V2 max: 108.9 cm/sec Ao max P.2 mmHg LV V1 max P.6 mmHg TR max al: 221.2 cm/sec TR max P.6 mmHg Interpretation Summary The estimated ejection fraction is 60 %. Stage 1 diastolic dysfunction. Trivial mitral valve insufficiency. Trivial tricuspid valve insufficiency. Right ventricular systolic pressure estimated to be 25 mmHg. Bubble contrast study negative for right to left interatrial shunt. Compared to echo report dated 08/30/2008, no appreciable changes noted. The study was technically difficult. Contrast injection was performed. Ordering Physician: Lauro Joshi Referring Physician: Lauro Joshi
== END ==
PROVIDERS: Family Provider Family Medicine; PCP Family Medicine; Referring Provider Internal Medicine Cardiovascular Disease; Visit Provider Internal Medicine Cardiovascular Disease
DX: R07.9 Chest pain, unspecified (principal)
CPT/HCPCS: 93306; Q9957; A4216; C8929

== ENCOUNTER → 2018-03-12 10:27 | Outpatient (CLI) | payer MEDICARE, SELFPAY ==
[2018-03-02 09:11] VITALS: BMI 26.2
--- NOTE | 2018-03-12 10:28 | STEWCON_ITS ---
Reason For Study: CHEST PAIN Stress Results Protocol: Aj Protocol Maximum Predicted HR: 142 bpm Target HR: 121 bpm % Maximum Predicted HR: 92 % DurationHeart Rate Stage (mm:ss) (bpm) BP Comment BASELINE 77 140/702CC DEFINITY STAGE 1 3:00 112 146/72 STAGE 2 1:30 131 / 2CC DEFINITY, INCREASED SOB RECOVERY 108 138/78 Stress Duration: 4:30 mm:ss Maximum Stress HR: 131 bpm Baseline Echocardiogram Findings The estimated ejection fraction is 65 %. Stress Echo Wall motion Data Resting WM Intermediate WM Stress WM Resting Wall Motion Wall Motion Stress No regional wall motion Posterior-Basal: Mildly abnormalities noted. hypokinetic. Infero-Basal: Mildly hypokinetic. Mid-Inferior: Mildly hypokinetic. EKG Data NSR with LBBB. The patient exercised according to the regular Aj protocol for a total duration of 4:30. The maximum heart rate attained was 137 beats per minute. This was 96% of maximum predicted heart rate. The patient exercised into stage 2 of the Aj protocol. During stress, there were no ST or T wave changes noted to suggest ischemia. No clinical angina was noted. Interpretation Summary The study was technically difficult. Contrast injection was performed. The estimated ejection fraction is 65 %. Posterior-Basal: Mildly hypokinetic Infero-Basal: Mildly hypokinetic Mid-Inferior: Mildly hypokinetic Abnormal, adequate, treadmill echocardiogram. Positive for ischemia by echocardiographic criteria. No anginal symptoms noted. Rare PVCs noted. Below average exercise capacity for age. Patient appeared to have mild inferior posterior hypokinesis seen in 2 views, parasternal long and apical 2 view. Test terminated due to dyspnea. Final LVEF is 55%. No complications. Pt referred to Dr Joshi's office for cath. Ordering Physician: Adi^Lauro^^^ Referring Physician: Lauro Joshi Performed By: Leeroy Carlos RCS
--- NOTE | 2018-03-12 11:36 | RAD_ITS ---
STUDY: X-RAY CHEST REASON FOR EXAM: Female, 77 years old. Chest pain. TECHNIQUE: PA and lateral views of the chest. COMPARISON: None. FINDINGS: Hyperinflation. Scattered calcified granulomas. There is no demonstrated pleural abnormality. Normal size heart. Normal mediastinum and lula. Normal visualized pulmonary arteries. There is atherosclerotic calcification of the aortic arch with tortuosity. There is demineralization of the osseous structures. Mild levoscoliosis. Normal visualized ribs, clavicles, and shoulders. There is no demonstrated abnormality of the visualized soft tissue structures of the upper abdomen. RAD/Chest PA and Lateral IMPRESSION: Hyperinflation. Electronically Signed: Alex Dawson MD at 12:31 EST Tel [phone], Service support ,
== END ==
PROVIDERS: Family Provider Family Medicine; PCP Family Medicine; Referring Provider Internal Medicine Cardiovascular Disease; Visit Provider Internal Medicine Cardiovascular Disease
DX: R07.9 Chest pain, unspecified (principal); R42 Dizziness and giddiness; R55 Syncope and collapse
CPT/HCPCS: 71046; 93017; 93350; Q9957; A4216; C8928

== ENCOUNTER 2018-03-31 07:56 | Day surgery (SDC) | payer MEDICARE, SELFPAY ==
[2018-03-02 09:11] VITALS: BMI 26.2
[2018-03-12 13:41] VITALS: BMI 26.2
[2018-03-30 08:41] VITALS: BMI 26.2
--- NOTE | 2018-03-31 11:14 | CL.D_ITS ---
Patient Name: NEETA GARCIA Study Date: 03/31/2018 Performing: Lauro Joshi MD Ht: 66.92 inches 170 cm : 1940 Wt: 167.55 lbs 76 kg Age: 78 Gender: female BSA: 1.87 PROCEDURE(S) PERFORMED [id number] CLINICAL PROFILE AND INDICATIONS Indications: Suspected CAD Heart Failure: None Stress/Imaging Stress Echocardiogram: Yes Result: Positive Low RiskStress Echocardiogram: Positiv e Low Risk CAD Presentations: Symptom unlikely to be ischemic. Other: Dyspnea on exertion. Comorbidities/Risk Factors: Dyslipidemia CONCLUSIONS Normal LV size, wall motion,and systolic function Non obstructive coronary arteries Normal Left Ventricular End Diastolic Pressure RECOMMENDATIONS ASA Indefinitely d/c plavix, increase zocor to 40mg po qhs and repeat FLP in 6 weeks. DESCRIPTION OF PROCEDURE The patient arrived to the procedure lab. The risks and benefits of the procedure as well as a full d escription of our services here and current unavailability of surgical backup were fully explained to the patient and/or their significant other prior to the catheterization. The Timeout was completed, verifying the correct patient and procedure. The patient's procedural site was prepped and draped in the usual fashion. Local anesthetic was given subcutaneously to right groin region with Lidocaine 2%. Using a modified Seldinger technique, arterial access was obtained via the right femoral artery, a 4 Fr sheath was inserted Left Coronary Artery selective angiography was performed in multiple views us ing a 4 Fr. JL5 catheter. Right Coronary Artery selective angiography was then performed in multiple views using a 4 Fr. 3DRC catheter. Left Ventriculography was performed in CARREON projection using a 4 Fr . Pigtail catheter. LV to AO pullback pressures were then recorded.The arterial sheath was pulled and manual compression applied until hemostasis is achieved. CORONARY ANGIOGRAPHY DOMINANCE: Co- Dominant LEFT HEART ASSESSMENT Left Ventricular Ejection Fraction: by LV Gram 65 % Normal LV wall motion Normal Left Ventricular systolic function LVEDP: 7 mmHg LEFT MAIN: Angiographically normal LEFT ANTERIOR DECENDING ARTERY: PROX LAD: Mild luminal irregularities less than 30% MID LAD: Mild luminal irregularities less than 30% DIAGONAL 1: Ostial - Mild luminal irregularities less than 30% CIRCUMFLEX ARTERY: Angiographically normal RIGHT CORONARY ARTERY: Angiographically normal COMPLICATIONS No Complications PROCEDURE MEDICATIONS Versed 1 mg IV Oxygen: 2 L/min via nasal cannula SUMMARY OF HEMODYNAMIC DATA Time AIR REST ECG 08:14:59 AO 147/66 (100) SA 10:59:25 LV 154/-18, 5 11:04:26 LV 145/-18, 7 11:04:33 LVp 146/-15, 5 11:04:38 AOp 148/64 (100) 11:04:43 Signed By Lauro Joshi MD On 03/31/2018 11:13:15 Lauro Joshi MD
== END 2018-03-31 15:40 | disposition home or self-care (01) ==
PROVIDERS: Family Provider Family Medicine; PCP Family Medicine; Referring Provider Internal Medicine Cardiovascular Disease; Visit Provider Internal Medicine Cardiovascular Disease
DX: R42 Dizziness and giddiness (principal); R07.9 Chest pain, unspecified; E78.5 Hyperlipidemia, unspecified; Z79.82 Long term (current) use of aspirin
CPT/HCPCS: 93458; 99152; J7040; C1769; C1894; Q9967

== ENCOUNTER → 2018-05-15 07:19 | Outpatient (CLI) | payer MEDICARE, SELFPAY ==
[2018-03-30 08:41] VITALS: BMI 26.2
[2018-05-15 08:49] LABS: AST(SGOT) 22 U/L (15-37); Alanine Aminotransfer ALT/SGPT 33 U/L (13-56); Alkaline Phosphatase 74 U/L (45-117); Bilirubin, Direct 0.15 mg/dL (0.00-0.30); Cholesterol 149 mg/dL (200); High Density Lipoprotein 80 mg/dL; Triglycerides 64 mg/dL; Very Low Density Lipoprotein 13 mg/dL (5-40)
== END ==
PROVIDERS: Family Provider Family Medicine; PCP Family Medicine; Referring Provider Internal Medicine Cardiovascular Disease; Visit Provider Internal Medicine Cardiovascular Disease
DX: E78.5 Hyperlipidemia, unspecified (principal)
CPT/HCPCS: 36415; 80061; 80076

== ENCOUNTER → 2018-07-28 10:27 | Outpatient (CLI) | payer MEDICARE, SELFPAY ==
[2018-03-30 08:41] VITALS: BMI 26.2
--- NOTE | 2018-07-28 10:30 | RAD_ITS ---
STUDY: X-RAY CHEST REASON FOR EXAM: Female, 78 years old. Cough and headaches. TECHNIQUE: PA and lateral views of the chest. COMPARISON: Comparison is made with prior study dated March 12, 2018. FINDINGS: Hyperinflation. Scattered calcified granulomas. There is no demonstrated pleural abnormality. Normal size heart. Normal mediastinum and lula. Normal visualized pulmonary arteries. Normal visualized aortic arch and descending thoracic aorta. There is demineralization of the osseous structures. Normal visualized ribs, clavicles, and shoulders. 21.5 cm calcified density is seen in the anterior aspect of the mid abdomen. This may represent a calcified gallstone. RAD/Chest PA and Lateral IMPRESSION: Hyperinflation. No acute abnormality is seen. Findings suggestive of a calcified gallstone. Electronically Signed: Alex Dawson, at 15:37 EDT , Service support ,
== END ==
PROVIDERS: Family Provider Family Medicine; PCP Family Medicine; Referring Provider Family Medicine; Visit Provider Family Medicine
DX: J18.9 Pneumonia, unspecified organism (principal)
CPT/HCPCS: 71046

== ENCOUNTER → 2018-12-09 08:28 | Outpatient (CLI) | payer MEDICARE, SELFPAY ==
[2018-03-30 08:41] VITALS: BMI 26.2
[2018-12-09 10:47] LABS: AST(SGOT) 18 U/L (15-37); Alanine Aminotransfer ALT/SGPT 25 U/L (13-56); Cholesterol 173 mg/dL (200); High Density Lipoprotein 78 mg/dL; Triglycerides 108 mg/dL; Very Low Density Lipoprotein 22 mg/dL (5-40)
== END ==
PROVIDERS: Family Provider Family Medicine; PCP Family Medicine; Referring Provider Family Medicine; Visit Provider Family Medicine
DX: E78.00 Pure hypercholesterolemia, unspecified (principal)
CPT/HCPCS: 36415; 80061; 84450; 84460

== ENCOUNTER → 2020-06-12 10:45 | Outpatient (CLI) | payer MEDICARE, SELFPAY ==
[2018-03-30 08:41] VITALS: BMI 26.2
[2020-06-12 12:38] LABS: AST(SGOT) 20 U/L (15-37); Alanine Aminotransfer ALT/SGPT 30 U/L (13-56); Anion Gap 5 (5-15); BUN 18 mg/dL (7-18); BUN/Creat Ratio 24.6 RATIO (10-20); Calcium,Total 9.5 mg/dL (8.5-10.1); Chloride 106 mmol/L (98-107); Cholesterol 173 mg/dL (200); Creatinine, Serum 0.73 mg/dL (0.55-1.02); EST Glomerular Filtration Rate 81 mL/min (>60); Est Glom Filt Rate - Afr Amer 98 mL/min (>60); Glucose 88 mg/dL (74-106); High Density Lipoprotein 89 mg/dL; Potassium 4.5 mmol/L (3.5-5.1); Sodium Level 140 mmol/L (136-145); Triglycerides 71 mg/dL; Very Low Density Lipoprotein 14 mg/dL (5-40)
[2020-06-12 13:02] LABS: Microalbumin,Random Urine < 5.0 mg/L (NO RANGE EST.)
== END ==
PROVIDERS: PCP Family Medicine; Referring Provider Family Medicine; Visit Provider Family Medicine
DX: I10 Essential (primary) hypertension (principal); E78.00 Pure hypercholesterolemia, unspecified
CPT/HCPCS: 36415; 80048; 80061; 82043; 82570; 84450; 84460

== ENCOUNTER → 2021-10-18 | Outpatient (CLI) | payer MEDICARE, SELFPAY ==
[2021-10-18 18:28] LABS: Anion Gap 5 (5-15); BUN 10 mg/dL (7-18); BUN/Creat Ratio 13.1 RATIO (10-20); Calcium,Total 9.9 mg/dL (8.5-10.1); Chloride 103 mmol/L (98-107); Cholesterol 161 mg/dL (200); Creatinine, Serum 0.76 mg/dL (0.55-1.02); EST Glomerular Filtration Rate 77 mL/min (>60); Est Glom Filt Rate - Afr Amer 93 mL/min (>60); Glucose 84 mg/dL (74-106); High Density Lipoprotein 71 mg/dL; Sodium Level 137 mmol/L (136-145); Thyroid Stim Hormone (TSH) 2.91 uIU/mL (0.358-3.74); Triglycerides 97 mg/dL; Very Low Density Lipoprotein 19 mg/dL (5-40)
== END | disposition home or self-care (01) ==
LOC: MTLAB 14:01
PROVIDERS: PCP Family Medicine; Referring Provider Family Medicine; Visit Provider Family Medicine
DX: Z00.00 Encounter for general adult medical examination without abnormal findings (principal); I10 Essential (primary) hypertension
CPT/HCPCS: 36415; 80048; 80061; 84443

== ENCOUNTER → 2022-11-17 | Outpatient (CLI) | payer MEDICARE, SELFPAY ==
[2022-11-17 16:41] LABS: Anion Gap 6 (5-15); BUN 16 mg/dL (7-18); BUN/Creat Ratio 23.1 RATIO (10-20); Calcium,Total 9.7 mg/dL (8.5-10.1); Chloride 103 mmol/L (98-107); Cholesterol 189 mg/dL (200); Creatinine, Serum 0.69 mg/dL (0.55-1.02); EST Glomerular Filtration Rate 86 mL/min (>60); Est Glom Filt Rate - Afr Amer 104 mL/min (>60); Glucose 91 mg/dL (74-106); High Density Lipoprotein 87 mg/dL; Potassium 4.2 mmol/L (3.5-5.1); Sodium Level 136 mmol/L (136-145); Thyroid Stim Hormone (TSH) 2.79 uIU/mL (0.358-3.74); Triglycerides 109 mg/dL; Very Low Density Lipoprotein 22 mg/dL (5-40)
== END | disposition home or self-care (01) ==
PROVIDERS: PCP Family Medicine; Referring Provider Family Medicine; Visit Provider Family Medicine
DX: E78.00 Pure hypercholesterolemia, unspecified (principal)
CPT/HCPCS: 36415; 80048; 80061; 84443

== ENCOUNTER → 2023-11-26 | Outpatient (CLI) | payer MEDICARE, SELFPAY ==
[2023-11-26 11:30] LABS: Anion Gap 6 (5-15); BUN 9 mg/dL (7-18); Calcium,Total 9.7 mg/dL (8.5-10.1); Chloride 107 mmol/L (98-107); Cholesterol 186 mg/dL (200); Creatinine, Serum 0.82 mg/dL (0.55-1.02); EST Glomerular Filtration Rate 71 mL/min (>60); Est Glom Filt Rate - Afr Amer 85 mL/min (>60); Glucose 100 mg/dL (74-106); High Density Lipoprotein 88 mg/dL; Potassium 4.1 mmol/L (3.5-5.1); Sodium Level 138 mmol/L (136-145); Triglycerides 133 mg/dL; Very Low Density Lipoprotein 27 mg/dL (5-40)
== END | disposition home or self-care (01) ==
PROVIDERS: PCP Family Medicine; Referring Provider Family Medicine; Visit Provider Family Medicine
DX: E03.9 Hypothyroidism, unspecified (principal)
CPT/HCPCS: 36415; 80048; 80061; 84443

== ENCOUNTER → 2024-01-25 | Outpatient (CLI) | payer MEDICARE, SELFPAY ==
[2024-01-25 10:09] LABS: Erythrocyte Sedimentation Rate 1 mm/hr (0-30)
[2024-01-25 10:13] LABS: Absolute Lymphocyte Count 1.85 X10^3/uL (0.83-4.51); Absolute Neutrophil Count 1.7 X10^3/uL (2.0-7.7); Basophil# 0.01 X10^3/uL; Basophil% 0.2 % (0-1); Eosinophil# 0.16 X10^3/uL; Eosinophils% 3.9 % (0-5); Hemoglobin 14.1 g/dL (12.0-15.0); Lymphocyte # 1.85 X10^3/ul (0.83-4.51); Lymphocyte % 45.3 % (19-41); Mean Corp Hgb Conc 33.6 g/dL (32-36); Mean Corpuscular Hgb 30.6 pg (27.0-32.0); Mean Corpuscular Volume 91.1 fL (81-99); Mean Platelet Vol. 9.7 fl (6.2-12.0); Monocyte# 0.39 X10^3/uL; Monocyte% 9.6 % (0-10); NRBC Flagged by Analyzer 0 % (0-5); Neutrophil # 1.65 X10^3/uL (2.7-7.7); Neutrophil % 40.5 % (47-70); Platelet Count 201 K/mm3 (150-450); RBC Distribution Width CV 13.3 % (11.6-14.6); RBC Distribution Width SD 44.8 fl (35.1-43.9); Red Blood Count 4.61 M/mm3 (4.2-5.4); White Blood Count 4.1 K/mm3 (4.4-11.0)
[2024-01-25 10:27] LABS: Vitamin B12 > 2000 pg/mL (211-911)
== END | disposition home or self-care (01) ==
PROVIDERS: PCP Family Medicine; Referring Provider Family Medicine; Visit Provider Family Medicine
DX: E03.9 Hypothyroidism, unspecified (principal); R53.83 Other fatigue
CPT/HCPCS: 36415; 82607; 84443; 85025; 85652

== ENCOUNTER → 2024-12-07 | Outpatient (CLI) | payer MEDICARE, SELFPAY ==
[2024-12-07 10:31] LABS: Hematocrit 38.4 % (37-47); Hemoglobin 13.0 g/dL (12.0-15.0); Immature Granulocytes Count 0.010 X10^3/uL (0.0-0.0); Mean Corp Hgb Conc 33.9 g/dL (32-36); Mean Corpuscular Volume 98.5 fL (81-99); Mean Platelet Vol. 10.4 fl (6.2-12.0); NRBC Flagged by Analyzer 0 % (0-5); Platelet Count 137 K/mm3 (150-450); RBC Distribution Width CV 13.6 % (11.6-14.6); RBC Distribution Width SD 49.1 fl (35.1-43.9); Red Blood Count 3.90 M/mm3 (4.2-5.4); White Blood Count 3.4 K/mm3 (4.4-11.0)
[2024-12-07 11:12] LABS: AST(SGOT) 23 U/L (<=31); Alanine Aminotransfer ALT/SGPT 18 U/L (<=34); Albumin, Serum 4.4 g/dL (3.4-4.8); Alkaline Phosphatase 73 U/L (35-104); Anion Gap 11 (5-15); BUN 9 mg/dL (4-19); BUN/Creat Ratio 13.0 RATIO (10-20); Calcium,Total 9.8 mg/dL (7.6-11.0); Carbon Dioxide 24.2 mmol/L (21.0-32.0); Chloride 104 mmol/L (98-108); Cholesterol 139 mg/dL (<=200); Globulin 2.6 g/dL (2.2-4.2); Glucose 94 mg/dL (70-99); Low Density Lipoprotein Calc. 53 mg/dL; Potassium 4.3 mmol/L (3.3-5.1); Triglycerides 79 mg/dL; Very Low Density Lipoprotein 16 mg/dL (5-40); Vitamin B12 732 pg/mL (180-914); Vitamin D,25 Hydroxy 37.1 ng/mL (30-100); cholesterol:hdl ratio screen 1.99
== END | disposition home or self-care (01) ==
LOC: MTLAB 08:23
PROVIDERS: PCP Family Medicine; Referring Provider Family Medicine; Visit Provider Family Medicine
DX: E78.00 Pure hypercholesterolemia, unspecified (principal)
CPT/HCPCS: 36415; 80053; 80061; 82306; 82607; 84443; 85025; 85652